=== PATIENT | male | born 1965 | race Caucasian/White ===

== ENCOUNTER 2019-10-16 11:27 | Outpatient (CLI) | payer OTHER | END 2019-10-16 12:01 | disposition home or self-care (01) | LOC: NUCLEAR 11:27 | DX: C73 Malignant neoplasm of thyroid gland (principal) | CPT/HCPCS: 79005; A9517 ==

== ENCOUNTER 2019-10-23 11:27 | Outpatient (CLI) | payer OTHER | END 2019-10-23 11:30 | disposition home or self-care (01) | LOC: NUCLEAR 11:27 | DX: C73 Malignant neoplasm of thyroid gland (principal) ==

== ENCOUNTER 2020-10-16 12:55 | Outpatient (CLI) | payer OTHER | END 2020-10-16 14:41 | disposition home or self-care (01) | LOC: NUCLEAR 12:55 | PROVIDERS: ATTEND Internal Medicine Sports Medicine | DX: C73 Malignant neoplasm of thyroid gland (principal); E89.0 Postprocedural hypothyroidism | CPT/HCPCS: 78018; 78020; A9528 ==